=== PATIENT | male | born 1995 | race African-American/Black ===

== ENCOUNTER 2017-08-21 10:48 | Emergency (ER) | payer SELFPAY ==
[2017-08-21] MEDS ORDERED: diPHENhydraMINE IV* 50 MG/ML 1 ml VIAL (BENADRYL) ONE (13:20)
[2017-08-21] MEDS ORDERED: Haloperidol INJ IV/IM* 5 MG/ML AMP ONE (13:20)
[2017-08-21] MEDS ORDERED: LORazepam INJ* 2 MG/ML 1 ML VIAL ONE (13:20)
[2017-08-21 14:19] VITALS: BP 141/82
--- NOTE | 2017-08-22 14:14 | ED ---
Ceci Rodríguez Julia, scribed for Juan Piña MD on 08/21/17 at 1119 . Psychiatric Complaint - HPI Summary HPI Summary: This patient is a 22 year old M brought into [facility] by [place] [employer], due to SI. Patient states he was no serious when he said he was going to kill himself, after being pulled over for driving with a suspended license, no registration, no plates, and a dragging muffler. He states Im fine, Im just pissed off. He continuously denies SI and states that he does not want to be here and will not cooperate with the evaluation process, regardless of how many times it was explained. He denies any recent alcohol use. - History Of Current Complaint Time Seen by Provider: 08/21/17 10:49 Hx Obtained From: Patient, Other: - Police Onset/Duration: Sudden Onset Character: Frustrated Aggravating Factor(s): Recent Stress Associated Signs And Symptoms: Positive: Hostile Has Suicidal: Denies: Thoughts - Allergies/Home Medications Allergies/Adverse Reactions: Allergies Allergy/AdvReac Type Severity Reaction Status Date / Time No Known Allergies Allergy Verified 08/23/14 23:08 PMH/Surg Hx/FS Hx/Imm Hx Opthamlomology History: Denies: Hx Legally Blind EENT History: Denies: Hx Deafness Psychiatric History: Reports: Hx of Violent Episodes Against Others Denies: Hx Depression - Immunization History Date of Tetanus Vaccine: unknown - Family History Known Family History: Positive: Other - denies hx of depression - Social History Alcohol Use: Occasionally Substance Use Type: Reports: Marijuana Substance Use Comment - Amount & Last Used: daily Smoking Status (MU): Current Every Day Smoker Review of Systems Constitutional: Negative - no medical complaints Positive: Other - frustrated All Other Systems Reviewed And Are Negative: Yes Physical Exam - Summary Physical Exam Summary: Appearance: The patient is well-nourished in no acute distress and in no acute pain. Skin: The skin is warm and dry and skin color reflects adequate perfusion. HEENT: The head is normocephalic and atraumatic. The pupils are equal and reactive. The conjunctivae are clear and without drainage. Nares are patent and without drainage. Mouth reveals moist mucous membranes and the throat is without erythema and exudate. The external ears are intact. The ear canals are patent and without drainage. The tympanic membranes are intact. Neck: the neck is supple with full range of motion and non-tender. There are no carotid bruits. There is no neck vein distension. Respiratory: Chest is non-tender. Lungs are clear to auscultation and breath sounds are symmetrical and equal. Cardiovascular: Heart is regular rate and rhythm. There is no murmur or rub auscultated. There is no peripheral edema and pulses are symmetrical and equal. Abdomen: The abdomen is soft and non-tender. There are normal bowel sounds heard in all four quadrants and there is no organomegaly palpated. Musculoskeletal: There is no back tenderness noted. Extremities are non-tender with full range of motion. There is good capillary refill. There is no peripheral edema or calf tenderness elicited. Neurological: Patient is alert and oriented to person, place and time. The patient has symmetrical motor strength in all four extremities. Cranial nerves are grossly intact. Deep tendon reflexes are symmetrical and equal in all four extremities. Psychiatric: The patient has an angry affect. Triage Information Reviewed: Yes Vital Signs On Initial Exam: Initial Vitals Temp Pulse Resp BP Pulse Ox 99.0 F 63 18 125/85 99 08/21/17 11:15 08/21/17 11:15 08/21/17 11:15 08/21/17 11:15 08/21/17 11:15 Vital Signs Reviewed: Yes Diagnostics - Vital Signs Vital Signs Temp Pulse Resp BP Pulse Ox 08/21/17 14:18 97.9 F 62 18 141/82 100 08/21/17 11:15 99.0 F 63 18 125/85 99 - Laboratory Lab Statement: Any lab studies that have been ordered have been reviewed, and results considered in the medical decision making process. Course/Dx - Course Course Of Treatment: Mr. Hoffman was brought in 941 by the police. He was in the process of being arrested and stated that he would kill himself. He presented quite upset and my initial impression was that he was upset when he said it and was not likely actually suffering from any mental health disorder. Nevertheless he was very uncooperative in the ED and it was difficult to tell. He was medically cleared and had a MHE. They agreed that he was safe for D/C. They were concerned that he needed a SS consult as he was homeless however he was not interested in that. - Differential Dx/Clinical Impression Provider Diagnosis: Anger reaction Discharge - Discharge Plan Condition: Stable Disposition: HOME Referrals: No Primary Care Phys,NOPCP [Primary Care Provider] - The documentation as recorded by the Ceci howard Julia accurately reflects the service I personally performed and the decisions made by me, Juan Piña MD.
== END 2017-08-22 14:18 | disposition home or self-care (01) ==
LOC: ED 10:48
DX: R45.4 Irritability and anger (principal); F17.200 Nicotine dependence, unspecified, uncomplicated
CPT/HCPCS: 96374; 96375; 99285; J1200; J1630; J2060